=== PATIENT | female | born 1955 | race Caucasian/White ===

== ENCOUNTER → 2017-06-28 | Outpatient (CLI) | payer OTHER ==
[~2017-06-28] MED LIST: FUROSEMIDE40 MG PO; K-DUR20 ME1 PO; MELOXICAM15 MG PO
[2017-06-28 10:02] LABS: HEMATOCRIT 41.8 % (35.0-45.0); HEMOGLOBIN 13.9 gm/dL (12.0-16.0); MEAN CORPUSCULAR HEMOGLOBIN 29.2 PG (28-34); MEAN CORPUSCULAR HGB CONC 33.2 g/dL (30-36); MEAN PLATELET VOLUME 8.9 FL (6.5-11.5); RED BLOOD COUNT 4.75 X10e (3.90-5.30); RED CELL DISTRIBUTION WIDTH 12.8 % (11.0-15.5); WHITE BLOOD COUNT 4.4 X10e3 (4.0-10.5)
[2017-06-28 11:18] LABS: CALCIUM SERUM 9.3 mg/dL (8.4-10.2); CREATININE SERUM 0.8 mg/dL (0.6-1.4); GLOM FILT RATE Estimated 79.6 mL/min (>60); POTASSIUM 4.6 mmol/L (3.5-5.1)
[2017-07-02 09:39] LABS: CALCIUM (PTHINTACT) 9.6 mg/dL (8.6-10.4)
== END | disposition home or self-care (01) ==
LOC: CAMB 09:28
PROVIDERS: Specialist
DX: E04.1 Nontoxic single thyroid nodule (principal)
CPT/HCPCS: 36415; 80048; 82310; 83970; 85027